=== PATIENT | male | born 1975 | race Caucasian/White ===

== ENCOUNTER 2016-10-23 22:34 | Emergency (ER) | payer OTHER ==
[~2016-10-23] VITALS: Ht 165.1 cm; Wt 90.7 kg
[2016-10-23 22:41] VITALS: BP 121/89
--- NOTE | 2016-10-24 01:24 | NUR ---
PATIENT LEFT WITHOUT BEING SEEN BY DR. CARROLL. NO FURTHER CARE PROVIDED FOR PATIENT.
== END 2016-10-24 01:24 | disposition left against medical advice (07) ==
LOC: MED 22:34
DX: M79.601 Pain in right arm (principal); Z53.21 Procedure and treatment not carried out due to patient leaving prior to being seen by health care provider

== ENCOUNTER 2016-12-27 20:53 | Emergency (ER) | payer OTHER ==
[~2016-12-27] VITALS: Ht 165.1 cm; Wt 90.7 kg
[2016-12-27 20:58] VITALS: BP 132/85
--- NOTE | 2016-12-27 21:08 | NUR ---
PT TAKEN TO BED 5
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
--- NOTE | 2016-12-27 21:35 | NUR ---
PA STUDENT EVALUATING PATIENT AT BEDSIDE.
--- NOTE | 2016-12-27 21:42 | NUR ---
Dr. Luis evaluating patient at bedside.
[2016-12-27 21:52] VITALS: BP 132/85
== END 2016-12-27 21:52 | disposition home or self-care (01) ==
LOC: MED 20:53
DX: L60.0 Ingrowing nail (principal); E78.00 Pure hypercholesterolemia, unspecified
CPT/HCPCS: 99283

== ENCOUNTER 2017-03-27 20:50 | Emergency (ER) | payer OTHER ==
[~2017-03-27] VITALS: Ht 170.2 cm; Wt 94.3 kg
[2017-03-27 20:53] VITALS: BP 119/84
--- NOTE | 2017-03-27 22:03 | NUR ---
PATIENT TO ER BED 3
--- NOTE | 2017-03-27 22:07 | NUR ---
Dr. Luis evaluating patient at bedside.
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
[2017-03-27 22:28] VITALS: BP 121/69
--- NOTE | 2017-03-27 22:28 | NUR ---
Patient discharged with v/s stable. Written and verbal after care instructions given and explained. Patient verbalized understanding. Ambulatory with steady gait. All questions addressed prior to discharge. Advised to follow up with PMD OR RETURN TO ER IF CONDITION WORSENS.
== END 2017-03-27 22:28 | disposition home or self-care (01) ==
LOC: MED 20:50
DX: R20.8 Other disturbances of skin sensation (principal); E78.00 Pure hypercholesterolemia, unspecified
CPT/HCPCS: 99283